=== PATIENT | female | born 1955 | race American Indian/Alaskan Native ===

== ENCOUNTER 2018-07-13 05:00 | Inpatient (IN) ==
--- NOTE | 2018-06-22 13:27 | Anesthesiology Consultation ---
Date of Service June 22, 2018 Assessment & Plan (1) Encounter for pre-operative examination: Chart Review Chart Review: Acceptable Risk for Surgery and Patient seen in Pre Admission Testing Consults Requested medical (Dr. Marks (07/07)) Patient was seen by PCP's office on 07/07/18. Per note, "Cleared for procedure". Teaching & Discussion Pre-Anesthesia Teaching/Discussion Notes: Instructed NPO after midnight before surgery, except medications with 15 cc of water. Medication instructions provided according to the PAT guidelines. History Surgery Operation Date: 07/13/18 07:15 Proposed Procedures p Right Total Knee Arthroplasty, Left Knee Injection - Homer Murguia DO Height/Weight Height: 5 ft 1 in Weight: 67.4 kg Allergies Allergy/AdvReac Type Severity Reaction Status Date / Time No Known Allergies Allergy Verified 06/16/18 08:07 Medications Home Medications Medication Instructions Recorded Confirmed Last Taken acetaminophen [Tylenol Extra 2 tab PO TID PRN 06/16/18 06/16/18 Unknown Strength] atorvastatin 20 mg PO DAILY 06/16/18 06/16/18 06/15/18 calcium carbonate [Calcium 600] 600 mg PO QAM 06/16/18 06/16/18 Unknown glucosamine-chondroitin 1 dose PO DAILY 06/16/18 06/16/18 Unknown hydrochlorothiazide 12.5 mg PO DAILY 06/16/18 06/16/18 06/15/18 multivitamin [Multiple Vitamins] 1 tab PO QAM 06/16/18 06/16/18 Unknown perindopril erbumine 8 mg PO DAILY 06/16/18 06/16/18 06/15/18 Past Medical History Medical History History of scoliosis Hyperlipidemia Hypertension Osteoarthritis Past Surgical History Surgical History History of abdominoplasty History of bilateral breast reduction surgery History of colonoscopy History of foot surgery L "PINS MID FOOT" & R ("STRAIGHTENED HAMMER TOE/2ND TOE") History of lumbar fusion L5-S1 FUSION, REMOVAL HARDWARE AND REPLACEMENT/MAR 2018 History of spinal fusion T2-S1 Nausea and vomiting after administration of anesthetic agent Past Anesthesia History No Hx of Anesthesia Complications and No Family Hx of Anesthesia Complications History of PONV Yes Motion Sickness Screening History of Motion Sickness: No Social History Smoking Status: Former smoker tobacco type: cigarettes Do You Dip or Chew Tobacco: No Smoking End Date: QUIT 20 YR AGO Hx Alcohol Use: Yes Alcohol type: wine alcohol intake frequency: other Alcohol Intake Frequency Comment: 10 DRINKS A WEEK Hx Substance Use: No substance use type: does not use Exercise / Class Metabolic Activity II 4-5 Yardwork/Stairs/Walk up hill (6-7K steps per day. Unable to walk on hills due to knee pain. Able to climb stairs, but slowly due to knee pain. Denies CP or SOB. ) Review of Systems Patient denies chest pain, shortness of breath, dyspnea on exertion, reflux, cough, wheezing, palpitations. + Joint Pain (Knees) Physical Exam Vital Signs BP: 111/77 P: 93 R: 18 T: 98.6 SPO2: 98% on RA ENMT Thyromental Distance: < 3.5 Finger Breadths (3) Mallampati Class: II Mouth / Teeth: 1. Upper partial Plate Upper partial plate Neck normal visual inspection and trachea midline; neck extension not limited Respiratory normal respiratory effort Auscultation: lungs clear to auscultation bilaterally Cardiovascular Rate/Rhythm: regular rate and regular rhythm Heart Sounds: no murmur Vessels: no carotid bruit Neurologic moves all extremities Psychiatric Orientation: alert and oriented x 3 Testing Electrocardiogram Date: 06/22/18 Findings: + NSR @ (83) Nonspecific T wave abnormality Chest X-Ray Date: 06/22/18 Findings: + NAD FINDINGS: PA and lateral chest radiographs are obtained. No prior studies are available for comparison at the time of dictation. The cardiomediastinal silhouette is unremarkable. The lungs and pleural spaces are clear. There is no pneumothorax. The skeletal structures are osteopenic. The bony thorax appears intact. Extensive fusion hardware is present throughout the thoracolumbar spine. IMPRESSION: No active disease in the chest. Laboratory Results 06/22/18 14:03 06/22/18 14:03 Blood Type A Positive 06/22/18 14:03 Antibody Screen NEGATIVE 06/22/18 14:03 PT 10.6 Seconds (9.0-12.0) 06/22/18 14:03 INR 1.0 (0.9-1.1) 06/22/18 14:03 APTT 23.4 Seconds (21.0-31.0) 06/22/18 14:03 Hemoglobin A1c 5.3 % (4.5-5.6) 06/22/18 14:03 Urine Color Yellow 06/22/18 14:03 Urine Appearance Clear (Clear) 06/22/18 14:03 Urine pH 6.5 (4.5-7.5) 06/22/18 14:03 Ur Specific [place] 1.015 (1.000-1.030) 06/22/18 14:03 Urine Protein Negative (Negative) 06/22/18 14:03 Urine Glucose (UA) Negative (Negative) 06/22/18 14:03 Urine Ketones Negative (Negative) 06/22/18 14:03 Urine Nitrite Negative (Negative) 06/22/18 14:03 Ur Leukocyte Esterase Negative (Negative) 06/22/18 14:03 Urine WBC (Auto) 0 /hpf (0-5) 06/22/18 14:03 Urine RBC (Auto) 0-4 /hpf (0-4) 06/22/18 14:03 U Hyaline Cast (Auto) 0 /lpf (0-5) 06/22/18 14:03 U Epithel Cells (Auto) 0-5 /lpf (0-5) 06/22/18 14:03 Urine Bacteria (Auto) Negative (Negative) 06/22/18 14:03 06/22/18 14:03 Urine Culture - Final Urine,Clean Catch More than three types of organisms present, all low counts mixed probable skin miracle. No further identifications or sensitivities to follow.
--- NOTE | 2018-06-22 13:35 | PAT Medication Instructions ---
Medication Instructions Date of Service June 22, 2018 Home Medications acetaminophen (Tylenol Extra Strength) 2 tab PO TID NEEDED atorvastatin 20 mg PO DAILY calcium carbonate [Calcium 600] 600 mg PO QAM glucosamine-chondroitin 1 dose PO DAILY hydrochlorothiazide 12.5 mg PO DAILY multivitamin [Multiple Vitamins] 1 tab PO QAM perindopril erbumine (Aceon) 8 mg PO DAILY STOP taking 2 weeks before surgery glucosamine-chondroitin 1 dose PO DAILY DO NOT take the morning of surgery atorvastatin 20 mg PO DAILY calcium carbonate [Calcium 600] 600 mg PO QAM hydrochlorothiazide 12.5 mg PO DAILY multivitamin [Multiple Vitamins] 1 tab PO QAM perindopril erbumine (Aceon) 8 mg PO DAILY Take morning of surgery With a small sip of water, OTHERWISE NOTHING TO EAT OR DRINK AFTER MIDNIGHT: acetaminophen (Tylenol Extra Strength) 2 tab PO TID NEEDED Take evening before surgery acetaminophen (Tylenol Extra Strength) 2 tab PO TID NEEDED atorvastatin 20 mg PO DAILY perindopril erbumine (Aceon) 8 mg PO DAILY Other Notes If you have any questions please call us at [phone] or [phone] or [phone] or [phone]
--- NOTE | 2018-06-22 14:40 | XRay Report ---
TWO VIEW CHEST CLINICAL HISTORY: Preoperative examination. FINDINGS: PA and lateral chest radiographs are obtained. No prior studies are available for compariso n at the time of dictation. The cardiomediastinal silhouette is unremarkable. The lungs and pleural spaces are clear. There is no pneumothorax. The skeletal structures are osteopenic. The bony thorax appears intact. Extensive fusion hardware is present throughout the thoracolumbar spine. IMPRESSION: No active disease in the chest. Electronically signed by: Michael Alexander M.D. 06/22/2018 2:39 PM
[2018-06-22 15:34] LABS: Basophils # (auto) 0.02 K/uL (0-0.2); Basophils % (auto) 0.4 %; Eosinophils % (auto) 2.2 %; Hematocrit (blood only) 37.8 % (37-47); Hemoglobin 12.5 g/dL (12.0-16.0); Lymphocytes % (auto) 45.9 %; Mean Corpuscular Hgb Conc 33.1 g/dL (32-36); Mean Corpuscular Volume 87.7 fL (80-100); Mean Platelet Volume 9.1 fL (7.4-10.4); Monocytes # (auto) 0.42 K/uL (0.11-0.59); Monocytes % (auto) 9.2 %; Neutrophils # (auto) 1.94 K/uL (1.4-6.5); Neutrophils % (auto) 42.3 %; Platelet Count 318 K/uL (130-400); RDW Coefficient of Variation 15.5 % (11.5-14.5); RDW Standard Deviation 50.3 fL (36.4-46.3); Red Blood Count 4.31 M/uL (4.2-5.4); White Blood Count 4.58 K/uL (4.8-10.8)
[2018-06-22 15:44] LABS: Appearance Urine Clear (Clear); Bacteria Urine Automated Negative (Negative); Bilirubin Urine Negative (Negative); Blood Urine Trace (Negative); Cast Urine Automated 0 /lpf (0-5); Color Urine Yellow; Epithelial Cell Urine Auto 0-5 /lpf (0-5); Glucose Urine UA Negative (Negative); Ketones Urine Negative (Negative); Leukocyte Esterase Urine Negative (Negative); Nitrite Urine Negative (Negative); Protein Urine Negative (Negative); RBC Urine Automated 0-4 /hpf (0-4); Specific Gravity Urine 1.015 (1.000-1.030); Urobilinogen Urine Negative (Negative); WBC Urine Automated 0 /hpf (0-5); pH Urine 6.5 (4.5-7.5)
[2018-06-22 15:45] LABS: Albumin Level 4.1 gm/dl (3.4-5.0); BUN Creatinine Ratio 22.2 (10-20); Calcium 9.3 mg/dl (8.5-10.1); Creatinine Clr Calc Pharmacy 89.6 ml/min; Est GFR (African American) 114.1; Est GFR (Non-African American) 98.4; Potassium 3.7 mmol/L (3.5-5.1)
[2018-06-22 15:49] LABS: Partial Thromboplastin Ratio 0.9; Partial Thromboplastin Time 23.4 Seconds (21.0-31.0); Prothrombin Time 10.6 Seconds (9.0-12.0)
[2018-06-23 06:45] LABS: Estimated Average Glucose 105 mg/dl; Hemoglobin A1C 5.3 % (4.5-5.6)
--- NOTE | 2018-07-12 20:23 | History & Physical Report ---
Date of Service July 12, 2018 Assessment & Plan (1) Tricompartment degenerative joint disease of knee: I have indicated the patient for right total knee replacement, IA corticosteroid left knee. The risks, benefits and complications of surgery were explained to the patient which include but not limited to infection, acute blood loss, DVT/PE, injury to nerves, vessels, bone, soft tissue, arthrofibrosis, chronic pain, failure of the prosthesis, knee dislocation, leg length discrepancy, need for additional surgery, cardiac and pulmonary events and . The patient wished to proceed with surgery and informed consent was obtained at this time. We will plan for ASA BID post-operatively for DVT prophylaxis. Upon discharge the patient will be discharged home with home health services. Appropriate clearances by PCP were obtained. We will also perform IA corticosteroid injection for the patients left knee. History of Present Illness Chief Complaint: Right knee pain/djd Left knee pain/djd Primary Care Provider: Oneal Marks The patient is a 63 year old female who presents with complaints of severe right knee pain and DJD. The patient has failed outpatient conservative treatments to this point which included NSAIDs, IA corticosteroid and CLARK injections, PT and HEP/walking program. The patient's pain and limited function have progressed to the point where they severely hinder their activities of daily living and they no longer tolerate exercise programs. They are requesting to proceed with total knee replacement surgery. Allergies Allergy/AdvReac Type Severity Reaction Status Date / Time No Known Allergies Allergy Verified 07/13/18 05:47 Home Medications Home Medications Medication Instructions Recorded Confirmed Type acetaminophen [Tylenol Extra 2 tab PO TID PRN 06/16/18 07/13/18 History Strength] atorvastatin 20 mg PO DAILY 06/16/18 06/16/18 History calcium carbonate [Calcium 600] 600 mg PO QAM 06/16/18 07/13/18 History glucosamine-chondroitin 1 dose PO DAILY 06/16/18 07/13/18 History hydrochlorothiazide 12.5 mg PO DAILY 06/16/18 06/16/18 History multivitamin [Multiple Vitamins] 1 tab PO QAM 06/16/18 07/13/18 History perindopril erbumine 8 mg PO DAILY 06/16/18 06/16/18 History Past Med/Surg History Medical History History of scoliosis Hyperlipidemia Hypertension Osteoarthritis Surgical History History of abdominoplasty History of bilateral breast reduction surgery History of colonoscopy History of foot surgery L "PINS MID FOOT" & R ("STRAIGHTENED HAMMER TOE/2ND TOE") History of lumbar fusion L5-S1 FUSION, REMOVAL HARDWARE AND REPLACEMENT/MAR 2018 History of spinal fusion T2-S1 Nausea and vomiting after administration of anesthetic agent Social History Preferred Language: Amharic Communication Ability: Effective Security Architect Required: No Beliefs That Will Affect Care: None Current Living Situation: Spouse Other Information That Helps Us Care for You: No Feels Safe at Home: Yes Smoking Status: Former smoker Tobacco Type: cigarettes Do You Dip or Chew Tobacco: No Smoking End Date: QUIT 20 YR AGO Hx Alcohol Use: Yes Alcohol type: wine Hx Substance Use: No Review of Systems Review of Systems: All systems reviewed & are unremarkable except as noted in HPI & below Constitutional: as per Subjective / HPI Physical Exam Physical Exam: RLE NVSI +EHL/FHL/TA/GS SILT grossly, +2 DP pulse, compartments soft NT, limited painful ROM 0-125 with crepitus. LLE NVSI +EHL/FHL/TA/GS SILT grossly, +2 DP pulse, compartments soft NT, limited painful ROM 0-125 with creptius. Constitutional: WD/WN, vitals as above Eyes: PERRL, conjunctivae normal, anicteric sclerae ENMT: external ear and nose normal, oropharynx normal Neck: trachea midline, no thyromegaly Respiratory: normal respiratory effort, lungs clear to auscultation Cardiovascular: RRR, no murmur, no edema Gastrointestinal (Abdomen): normal bowel sounds, soft, nontender, no hepatosplenomegaly Musculoskeletal: no cyanosis or clubbing, extremities motor strength 5/5 Skin: no rashes, warm and dry Neurologic: patellar DTR's 2+ bilat, sensation intact Psychiatric: A+Ox3, euthymic affect Lymphatic: no cervical or axillary lymphadenopathy Results & Data Diagnostic Findings Multiple views of bilateral knees demonstrate severe tricompartmental DJD with complete loss of the patellofemoral joint space. +osteophytes, +sclerosis, +subchondral cysts.
[2018-07-13] MEDS ORDERED: TRANEXAMIC ACID 1,000 MG **IV Pre-op IV SCH (06:00)
[2018-07-13] MEDS ORDERED: CEFAZOLIN 1000MG 1,000 MG/7.5 ML SYR IV SCH ×2 (06:00→11:04)
[2018-07-13] MEDS ORDERED: LR 500ML BOLUS, THEN 15ML/HR IV SCH (06:00)
[2018-07-13] MEDS ORDERED: FAMOTIDINE 20 MG TAB PO SCH (06:00)
[2018-07-13] MEDS ORDERED: METOCLOPRAMIDE HCL 10 MG TABLET PO SCH (06:00)
[2018-07-13] MEDS ORDERED: ACETAMINOPHEN 500 MG TAB PO SCH (06:00)
[2018-07-13] MEDS ORDERED: SCOPOLAMINE 1.5 MG TDSY TD SCH (06:00)
[2018-07-13] MEDS ORDERED: dexAMETHasone 4 MG TAB PO SCH (06:00)
[2018-07-13] MEDS ORDERED: ROPIVACAINE 0.5% HCL/PF 150 MG, BUPIVACAINE 0.5% MPF 30 ML, EPINEPHrine 30MG/30ML (OR U... INFIL SCH (06:00)
[2018-07-13] MEDS ORDERED: CeleBREX 200 MG CAP PO SCH (06:00)
[2018-07-13] MEDS ORDERED: TRANEXAMIC ACID 1,000 MG **IV Intra-op IV SCH (06:30)
[2018-07-13] MEDS ORDERED: ROPIVACAINE 0.5% 5 MG/ML 30 ML VIAL ONE (06:33)
[2018-07-13] MEDS ORDERED: BUPIVACAINE 0.5 % 5 MG/1 ML PF 10ML VIAL ONE (06:33)
[2018-07-13] MEDS ORDERED: MIDAZOLAM HCL 1 MG/ML 2ML VIAL ONE (06:34)
[2018-07-13] MEDS ORDERED: KETAMINE HCL INJ 50 MG/ML 10 ML VIAL ONE (06:34)
[2018-07-13] MEDS ORDERED: POVIDONE-IODINE OP SOLN 30 ML BTL ONE (06:58)
[2018-07-13] MEDS ORDERED: BACITRACIN INJ 50,000 UNIT VIAL ONE (06:58)
--- NOTE | 2018-07-13 07:01 | History & Physical Bridge Note ---
Date of Service July 13, 2018 History & Physical Bridge Note I have examined the patient, reviewed the History & Physical and in the interval since the performance of the History & Physical I have noted the following changes of clinical significance: no changes noted
[2018-07-13] MEDS ORDERED: methylPREDNISolone acetate 80 MG/ML VIAL ONE (07:31)
[2018-07-13] MEDS ORDERED: BUPIVACAINE/EPINEPHRINE 0.5% MPF 1:200,000 30 ML VIAL ONE (07:33)
[2018-07-13] MEDS ORDERED: PHENYLEPHRINE 100MCG/ML 5ML SYR IV PRN (07:44)
[2018-07-13] MEDS ORDERED: ONDANSETRON INJ 2 MG/ML 2 ML VIAL IV PRN ×2 (07:44→11:04)
[2018-07-13] MEDS ORDERED: ATROPINE SULFATE 0.1 MG/ML 10ML SYR IV PRN (07:44)
[2018-07-13] MEDS ORDERED: HYDROmorphone INJ 1 MG/ML SYRINGE IV PRN (07:44)
[2018-07-13] MEDS ORDERED: ePHEDrine sulfate 50 MG/ML AMP IV PRN (07:44)
[2018-07-13] MEDS ORDERED: LIDOCAINE HCL 2% 2 ML VIAL/AMP(20MG/ML) INFIL ONE (07:55)
[2018-07-13] MEDS ORDERED: ONDANSETRON INJ 2 MG/ML 2 ML VIAL ONE (07:55)
[2018-07-13] MEDS ORDERED: PROPOFOL IV EMULSION 10 MG/ML 20 ML VIAL IV ONE (07:55)
[2018-07-13] MEDS ORDERED: GLYCOPYRROLATE 0.2 MG/ML VIAL ONE (07:55)
[2018-07-13] MEDS ORDERED: DEXAMETHASONE SOD INJ 4 MG/ML VIAL ONE (07:55)
--- NOTE | 2018-07-13 09:12 | Post Operative Brief Note ---
Immediate Post Op Note v1 Date of Surgery July 13, 2018 Pre & Post Diagnosis Operation Date: 07/13/18 07:15 Pre-Op Diagnosis: Right Knee Osteoarthritis, left knee osteoarthritis Post-Op Diagnosis: Right Knee Osteoarthritis, left knee osteoarthritis Procedure Operation Date: 07/13/18 07:15 Actual Procedures p Right Total Knee Arthroplasty(Right) - Homer Murguia DO s Left Knee Injection(Left) - Homer Murguia DO Surgeon Homer Murguia DO Estimator And Drafter Augustus White Estimated Blood Loss 50 Findings Consistent with Post-Op Diagnosis Fluids 1700 cc LR Specimens distal femur, proximal tibia bone fragments Anesthesia Type Spinal MAC Complications none Disposition Disposition: Recovery Room Overlapping Procedure I was present for: the critical portions of procedure. I was immediately available: during the entire case. Back up surgeon: was not required during procedure.
--- NOTE | 2018-07-13 09:33 | Operative Report ---
Post Operative Report Pre & Post Diagnosis Operation Date: 07/13/18 07:15 Pre-Op Diagnosis: Right Knee Osteoarthritis, left knee osteoarthritis Post-Op Diagnosis: Right Knee Osteoarthritis, left knee osteoarthritis Procedure Operation Date: 07/13/18 07:15 Actual Procedures p Right Total Knee Arthroplasty(Right) - Homer Murguia DO s Left Knee Injection(Left) - Homer Murguia DO Surgeon Homer Murguia DO Airline Attendant Augustus White Estimated Blood Loss 50 Findings Consistent with Post-Op Diagnosis Specimens proximal tibia, distal femur fragments Anesthesia Type Spinal MAC Complications none Disposition Disposition: Recovery Room Indications The patient is a 63-year-old femur presents with long history of severe bilateral knee tricompartmental DJD and failed outpatient conservative treatments including NSAIDs, bracing, injections and home walking/exercise program. The patient's symptoms have progressed to the point where it has been difficult to perform normal activities of daily living. I have indicated the patient for a right total knee arthroplasty and intra- articular corticosteroid injection of the left knee, the risks and benefits and complications of the procedure include but are not limited to infection bleeding damage to bone, nerves, vessels, surrounding soft tissue, blood clots, loss of function, leg length discrepancy, dislocation, failure of the components, need for additional surgery and . The patient wished to proceed with surgery at this time and informed consent was obtained. Appropriate clearances were obtained. Description of Procedure Following induction of spinal anesthesia, the patient was positioned on the operating room table. A timeout was performed, patient identified site were confirmed, utilizing sterile technique the superior lateral aspect of the left knee was cleaned with Betadine solution and alcohol. Intra-articular corticosteroid injection was administered containing 3 cc of 1% lidocaine and 2 cc of betamethasone. Adhesive bandage was applied. The patient tolerated the procedure well. Next, a tourniquet was applied to the proximal aspect of the thigh and the patient's right leg was prepped and draped in the usual sterile manner. A timeout was performed, patient identified and site yesenia confirmed. Appropriate pre-operative IV antibiotics were given. The limb was exsanguinated with an Esmarch bandage and tourniquet was inflated to 300 mmHg. A longitudinal midline incision was made over the anterior knee. Subcutaneous tissue was sharply dissected down to fascia. Electrocautery was used for hemostasis. Next a parapatellar arthrotomy was performed. Patella was everted and the knee was flexed. A Dent retractor was used to expose the synovium above on the anterior aspect of the femur and removed down to bone. Next, the anterior fat pad was removed to aid in visualization. The medial face of the tibia was cleared of soft tissue first with a Bovie and a coffey elevator. This tissue was retracted posteriorly using a blunt Hohmann. Next, the extra-medullary tibial cutting guide was placed to the anterior aspect of the tibia. The tibia resection level was set taking 2mm from the defective tibial condyle. Resection depth was once again confirmed with carla wing. The medial and lateral collateral ligament was protected with two Hohmann retractors. The tibia guide was removed and proximal tibial bone fragment removed utilizing straight osteotome, electrocautery and Harman. Next, the distal femur intramedullary canal was accessed utilizing the step drill. The intramedullary distal femur cutting guide was placed into the canal and pinned into place. The distal femur was cut on the +2 setting. Next the cutting guide was removed and the femur was sized. Care was taken to ensure appropriate net developer architect all rotation and 5 degree holes were drilled. A size 8 4-in-1 cutting block was placed on the distal end of the femur and secured into place with two short headed screws. Two bent Hohmann retractors were placed to protect the medial and lateral collateral ligaments. The oscillating saw was used to cut anterior, posterior, anterior chamfer and posterior chamfer. The four and one cutting block was removed and bone fragments excised. Laminar energy systems laboratory director was placed laterally and the ACL and PCL were removed followed by the medial meniscus and posterior medial osteophytes. Aquamantys was utilized for any posterior medial bleeders and Orthomix injected into the posterior medial capsule. A laminar energy systems laboratory director was then placed in the medial compartment and the lateral meniscus and posterior osteophytes were removed. Aquamantys was utilized for any posterior lateral bleeders and Orthomix injected into the posterior lateral capsule. Next, drop christophe and spacer block were placed with the leg in flexion and extension to assess alignment and flexion/extension gaps. Next, the proximal tibia was assessed and two bent Hohmans were placed medial and lateral to aid in visualization. The appropriate tibia size and rotation was selected and a size D tibial plate was pinned into place with appropriate rotation. Preparation of the tibia was completed utilizing the matching tibial drill and broach. I then turned my attention back to the distal femur in a trial femoral component was impacted into place. Appropriate femoral width was assessed and selected. Next the femur PS box cut guide was placed and cut made with the reciprocal saw and the PS box provisional placed. A trial size 10 tibia articular tray was placed and varus-valgus balance assessed in 0 degrees of extension and 30, 60 and 90 degrees of flexion. A final tibial articular surface size 10 was chosen. Assess was gained to the patella and caliper utilized to measure width. The patella reamer was utilized and remaining bone removed with oscillating saw. A size 29 patella button was selected and the patella pegs drilled. Trial patella button was placed and tracking was assessed. The knee was found to be well balanced, well aligned with excellent patella tracking. The trials were removed and final components were obtained and assembled. The knee was irrigated copiously with sterile saline solution mixed with bacitracin. Access to the proximal tibia was once again obtained utilizing to the Hohmans and the proximal tibia and distal femur were dried with lap sponges. The final components were cemented into place and all excess cement was removed. A trial tibial articular surface was placed while cemented hardened. Knee stability was once again assessed and the final component inserted. The knee was injected with the remaining Orthomix which includes a combination of Ropivicaine 0.5% 150mg, Bupivicaine 0.5%/Epinephrine 1:200,000 30ml, Toradol 30mg, Dexamethasone 4mg, Ketamine 10mg, Clonidine 100mcg and NSS 30ml solution and irrigated once more with sterile saline solution mixed with bacitracin. The capsulotomy was closed with #1 Vicryl followed by subcutaneous closure with 2-0 Vicryl. Skin closure was performed with zelda and a sterile dressing, Silverlon, 4 x 4s and nai wrap was applied. Tourniquet was deflated at 89 minutes. The patient tolerated the procedure well and was taken to the PACU in stable condition. Due to the complex nature of the procedure, the entire surgery was performed with the operational assistance of Augustus White PA-C. The assistant quality manager, under direct supervision, was involved in the actual performance of all aspects of the surgical procedure including patient positioning, hemostasis, tissue retraction, instrument management and wound closure. I attest to the content of the Intraoperative Record and any orders documented therein. Any exceptions are noted below.
--- NOTE | 2018-07-13 10:08 | XRay Report ---
XR knee RT 2V routine CLINICAL HISTORY: Surgical Post Op COMPARISON: None FINDINGS: Alignment of the right knee arthroplasty is anatomic. There is no fracture or unexpected r adiopaque foreign body. There are skin zelda. IMPRESSION: Expected findings following total right knee arthroplasty. Electronically signed by: Navin Giordano M.D. 07/13/2018 10:07 AM
--- NOTE | 2018-07-13 10:26 | Anesthesiology Progress Note ---
Date of Service July 13, 2018 Anesthesia Post Procedure Vital Signs Vital Signs: Temp Pulse Pulse Resp BP BP Pulse Ox 07/13/18 10:20 58 L 12 114/65 100 07/13/18 10:10 70 16 113/65 100 07/13/18 10:00 66 14 115/69 99 07/13/18 09:50 65 15 104/66 100 07/13/18 09:41 36.9 C 83 12 112/69 100 07/13/18 05:54 36.6 C 70 20 137/81 97 Pain Intensity Bilateral Knee: Pain Intensity: 3 Transfer of Care Handoff Completed per policy Notes Mental Status: alert / awake / arousable Patient Amnestic to Procedure: Yes Nausea / Vomiting: adequately controlled Pain: adequately controlled Airway Patency, RR, SpO2: stable & adequate BP & HR: stable & adequate Hydration State: stable & adequate Neuraxial Anesthesia: was administered and sensory block is resolving Anesthetic Complications: no major complications apparent
[2018-07-13] MEDS ORDERED: MAGNESIUM HYDROXIDE SUSP 30 ML UDC PO PRN (11:04)
[2018-07-13] MEDS ORDERED: NALOXONE HCL 0.4 MG/1 ML VIAL/CARP IV PRN (11:04)
[2018-07-13] MEDS ORDERED: BISACODYL 10 MG SUPP PR PRN (11:04)
[2018-07-13] MEDS ORDERED: HYDROmorphone INJ 0.5 MG/0.5 ML SYR IV PRN (11:04)
[2018-07-13] MEDS ORDERED: METOCLOPRAMIDE HCL INJ 5 MG/ML 2 ML VIAL IV PRN (11:04)
[2018-07-13] MEDS: KETOROLAC TROMETHAMINE 15 MG/ML VIAL IV SCH ×2 (11:57→19:12)
[2018-07-13] MEDS: SODIUM CHLORIDE 0.9% 1000ML 1,000 ML IV SCH ×2 (11:57→21:02)
[2018-07-13] MEDS: ACETAMINOPHEN 500 MG TAB PO SCH ×2 (13:30→21:05)
[2018-07-13] MEDS: CEFAZOLIN 1000MG 1,000 MG/7.5 ML SYR IV SCH (15:46)
[2018-07-13] MEDS: CHECK SCOPOLAMINE PATCH PLACEMENT SCH (15:47)
--- NOTE | 2018-07-13 19:30 | Orthopedic Progress Note ---
Date of Service July 13, 2018 Assessment & Plan (1) Tricompartment degenerative joint disease of knee: Status post intra-articular corticosteroid injection left knee, right total knee arthroplasty -Ancef x24 -DVT prophylaxis SCDs, teds, ASA twice daily -Weight-bear as tolerates bilateral lower extremities -PT/OT -A.m. labs -Postoperative x-rays demonstrate a well aligned well fixed orthopedic prosthesis without evidence of fracture dislocation. -DC planning home with home health Subjective Post Operative Progress Note Patient seen sitting up in bed, comfortable, denies complaints, pain well controlled, no acute issues. Review of Systems Review of Systems: All systems reviewed & are unremarkable except as noted in HPI & below Constitutional: as per Subjective / HPI Physical Exam Physical Exam: Right lower extremity physical exam limited secondary to spinal anesthesia, patient still feeling the effects but slowly improving. +2 dorsalis pedis pulse, slight movement of toes and ankle, compartment soft nontender, dressing clean dry and intact LLE NVSI +EHL/FHL/TA/GS SILT grossly, +2 DP pulse, compartments soft NT, dressing cdi. Constitutional: WD/WN, vitals as above Results & Data Vital Signs (Past 12 Hours) Vital Signs Temp Pulse Pulse Resp BP Pulse Ox 07/13/18 15:14 36.7 C 82 16 116/69 95 07/13/18 13:51 94 H 16 124/73 99 07/13/18 13:03 89 16 113/72 98 07/13/18 11:50 64 16 105/64 100 07/13/18 11:20 66 107/70 100 07/13/18 10:50 36.6 C 73 16 117/76 99 07/13/18 10:30 36.7 C 62 14 121/78 100 07/13/18 10:20 58 L 12 114/65 100 07/13/18 10:10 70 16 113/65 100 07/13/18 10:00 66 14 115/69 99 07/13/18 09:50 65 15 104/66 100 07/13/18 09:41 36.9 C 83 12 112/69 100
[2018-07-13] MEDS ORDERED: SENNA 8.6 MG TAB PO SCH (21:00)
[2018-07-13] MEDS: DOCUSATE SODIUM 100 MG CAP PO SCH (21:04)
[2018-07-13] MEDS: OXYCODONE HCL IR 5 MG TAB (IMMEDIATE RELEASE) PO PRN (21:08)
[2018-07-14] MEDS: CEFAZOLIN 1000MG 1,000 MG/7.5 ML SYR IV SCH (00:02)
[2018-07-14] MEDS: CHECK SCOPOLAMINE PATCH PLACEMENT SCH (00:02)
[2018-07-14] MEDS: KETOROLAC TROMETHAMINE 15 MG/ML VIAL IV SCH ×2 (00:02→05:41)
[2018-07-14] MEDS: OXYCODONE HCL IR 5 MG TAB (IMMEDIATE RELEASE) PO PRN ×3 (02:57→12:33)
[2018-07-14] MEDS: ACETAMINOPHEN 500 MG TAB PO SCH (05:41)
[2018-07-14 06:07] LABS: Hematocrit (blood only) 29.6 % (37-47); Hemoglobin 10.1 g/dL (12.0-16.0); Mean Corpuscular Hgb Conc 34.1 g/dL (32-36); Mean Corpuscular Volume 84.3 fL (80-100); Mean Platelet Volume 8.9 fL (7.4-10.4); Platelet Count 254 K/uL (130-400); RDW Coefficient of Variation 16.2 % (11.5-14.5); RDW Standard Deviation 49.9 fL (36.4-46.3); Red Blood Count 3.51 M/uL (4.2-5.4); White Blood Count 11.13 K/uL (4.8-10.8)
[2018-07-14 06:39] LABS: BUN Creatinine Ratio 23.6 (10-20); Calcium 8.3 mg/dl (8.5-10.1); Creatinine Clr Calc Pharmacy 78.6 ml/min; Est GFR (African American) 109.1; Est GFR (Non-African American) 94.1; Potassium 3.9 mmol/L (3.5-5.1)
[2018-07-14] MEDS: DOCUSATE SODIUM 100 MG CAP PO SCH (08:21)
[2018-07-14] MEDS ORDERED: CeleBREX 200 MG CAP PO SCH (09:00)
[2018-07-14] MEDS ORDERED: ASPIRIN 325 MG ECTAB PO SCH (09:00)
[2018-07-14] MEDS ORDERED: hydroCHLOROthiazide 25 MG TAB PO SCH (09:00)
[2018-07-14] MEDS ORDERED: LISINOPRIL 20 MG TAB PO SCH (09:00)
[2018-07-14] MEDS ORDERED: ATORVASTATIN 20 MG TAB PO SCH (09:00)
[2018-07-14] MEDS ORDERED: MULTIVITAMIN TAB PO SCH (09:00)
--- NOTE | 2018-07-14 10:11 | Orthopedic Progress Note ---
Date of Service July 14, 2018 Assessment & Plan (1) Tricompartment degenerative joint disease of knee: Status post intra-articular corticosteroid injection left knee, right total knee arthroplasty POD#1 -Ancef x24 -DVT prophylaxis SCDs, teds, ASA twice daily -Weight-bear as tolerates bilateral lower extremities -PT/OT -A.m. labs - hgb 10.1 -Postoperative x-rays demonstrate a well aligned well fixed orthopedic prosthesis without evidence of fracture dislocation. -DC planning home with home health today Subjective Post Operative Progress Note Patient seen sitting up in bed, comfortable, denies complaints, pain well controlled, no acute issues. Review of Systems Review of Systems: All systems reviewed & are unremarkable except as noted in HPI & below Constitutional: as per Subjective / HPI Physical Exam Physical Exam: RLE NVSI +EHL/FHL/TA/GS SILT grossly, +2 DP pulse, compartments soft NT, dressing cdi. LLE NVSI +EHL/FHL/TA/GS SILT grossly, +2 DP pulse, compartments soft NT. Constitutional: WD/WN, vitals as above Results & Data Vital Signs (Past 12 Hours) Vital Signs Temp Pulse Pulse Resp BP BP Pulse Ox 07/14/18 07:50 36.7 C 64 16 118/70 96 07/14/18 07:15 36.7 C 93 H 18 126/77 93 07/14/18 02:38 36.7 C 88 16 116/71 91 07/13/18 22:48 36.7 C 101 H 18 119/69 94
--- NOTE | 2018-07-14 10:15 | Anesthesiology Progress Note ---
Date of Service July 14, 2018 Anesthesia Post Procedure Vital Signs Vital Signs: Temp Pulse Pulse Resp BP BP Pulse Ox 07/14/18 07:50 36.7 C 64 16 118/70 96 07/14/18 07:15 36.7 C 93 H 18 126/77 93 07/14/18 02:38 36.7 C 88 16 116/71 91 07/13/18 22:48 36.7 C 101 H 18 119/69 94 07/13/18 19:36 37.0 C 90 18 113/67 93 07/13/18 15:14 36.7 C 82 16 116/69 95 07/13/18 13:51 94 H 16 124/73 99 07/13/18 13:03 89 16 113/72 98 07/13/18 11:50 64 16 105/64 100 07/13/18 11:20 66 107/70 100 07/13/18 10:50 36.6 C 73 16 117/76 99 07/13/18 10:30 36.7 C 62 14 121/78 100 07/13/18 10:20 58 L 12 114/65 100 Pain Intensity Bilateral Knee: Pain Intensity: 3 Right Knee: Pain Intensity: 0 Notes Mental Status: alert / awake / arousable and participated in evaluation Patient Amnestic to Procedure: Yes Nausea / Vomiting: adequately controlled Pain: adequately controlled Airway Patency, RR, SpO2: stable & adequate BP & HR: stable & adequate Hydration State: stable & adequate Neuraxial Anesthesia: was administered and sensory block resolved Anesthetic Complications: no major complications apparent
[2018-07-14 11:29] VITALS: BP 122/82; PULSE 70; TEMP 97.7; O2SAT 95
--- NOTE | 2018-07-15 15:49 | Discharge Summary ---
Date of Service July 15, 2018 Admission HPI Per Admitting Provider The patient is a 63 year old female who presents with complaints of severe right knee pain and DJD. The patient has failed outpatient conservative treatments to this point which included NSAIDs, IA corticosteroid and CLARK injections, PT and HEP/walking program. The patient's pain and limited function have progressed to the point where they severely hinder their activities of daily living and they no longer tolerate exercise programs. They are requesting to proceed with total knee replacement surgery. Principal Diagnosis Bilateral knee DJD s/p Right total knee replacement, left knee intra-articular corticosteroid injection Discharge Exam Constitutional WD/WN, vitals as above Eyes PERRL, conjunctivae normal, anicteric sclerae ENMT external ear and nose normal, oropharynx normal Neck trachea midline, no thyromegaly Respiratory normal respiratory effort, lungs clear to auscultation Cardiovascular RRR, no murmur, no edema Gastrointestinal (Abdomen) normal bowel sounds, soft, nontender, no hepatosplenomegaly Musculoskeletal no cyanosis or clubbing, extremities motor strength 5/5 Skin no rashes, warm and dry Neurologic patellar DTR's 2+ bilat, sensation intact Psychiatric A+Ox3, euthymic affect Lymphatic no cervical or axillary lymphadenopathy Discharge Data Allergies Allergy/AdvReac Type Severity Reaction Status Date / Time No Known Allergies Allergy Verified 07/13/18 05:47 Consultations 07/13/18 11:04 Consult Case Management - Discharge Planning Routine Procedures Performed Operation Date: 07/13/18 07:15 Actual Procedures p Right Total Knee Arthroplasty(Right) - Homer Murguia DO s Left Knee Injection(Left) - Homer Murguia DO Ordered Studies 07/13/18 05:00 US - OR guided needle placemen Routine Hospital Course (1) Tricompartment degenerative joint disease of knee: The patient is a 63 -year-old female who presents with long standing history of severe bilateral knee DJD and failed outpatient conservative treatments including NSAIDs, bracing, injections and home walking/exercise program. The patient's symptoms have progressed to the point where it has been difficult to perform even normal activities of daily living. I indicated the patient for a intra-articular left knee corticosteroid injection and right total knee arthroplasty, the risks, benefits and complications of the procedure include but not limited to infection, bleeding, damage to bone, nerves, vessels, surrounding soft tissue, may develop blood clots, loss of function, leg length discrepancy, dislocation, failure of the components, loosening of the components, the need for additional surgery and . The patient wished to proceed with surgery at this time and informed consent was obtained. Hospital Course: On 07/03/18 the patient was taken to the operating room, adequate anesthesia administered and underwent a intra-articular left knee corticosteroid injection and right total knee arthroplasty. The patient tolerated the procedures well and was taken to the PACU in stable condition. Post-operatively the patient was started on a DVT ppx medication and given appropriate IV antibiotics. Consults were placed to physical therapy, occupational therapy and case management. On POD#1, the patient did well overnight and their pain was well controlled. Labs were drawn and the Hgb was 10.1. The patient progressed well with PT. Dressings were changed at this time and the incision was clean, dry and intact. The patients hospital stay was relatively uneventful and they were deemed stable by the orthopedic team and consultants to be discharged home with on 07/14/18. Discharge Instructions: Upon discharge the patient may weight bear as tolerates through their operative extremity. They were instructed to keep the incision clean and dry at all times. The patient may shower but should not submerge the incision, avoid bathi ng, pools and hot tubes. The patient was given a script for pain medication and should take as instructed. The patient was given a script for DVT ppx 325mg ASA BID and should take as directed. The patient was instructed to not drive or travel for long distances until cleared to do so. If the patient develops any symptoms of fevers, chills, nausea, vomiting, increased redness, swelling, pain or drainage from the surgical site, they should notify the office and/or proceed to the nearest emergency room. The patient should follow up in 10-14 days after surgery for their routine post-operative follow-up appointment and should call the office to confirm the date and time. Status post intra-articular corticosteroid injection left knee, right total knee arthroplasty POD#1 -Ancef x24 -DVT prophylaxis SCDs, teds, ASA twice daily -Weight-bear as tolerates bilateral lower extremities -PT/OT -A.m. labs - hgb 10.1 -Postoperative x-rays demonstrate a well aligned well fixed orthopedic pros thesis without evidence of fracture dislocation. -DC planning home with home health today Total Time Total Time Spent Total Time Spent (In Minutes): >60 minutes Total Time Includes: Examination of the Patient, Discharge Planning, Medication Reconciliation and Communication With Other Providers Discharge Plan Discharge Items Patient Disposition: Home - Home Health Services Reason For Visit: RIGHT KNEE OSTEOARTHRITIS,LEFT KNEE OSTEOARTHRITIS Discharge Diagnosis: Right total knee replacement, left knee intra-articular corticosteroid injection Condition: Good Discharge Goals: Decrease discomfort, Improve function, Increase independence and Therapeutic intervention Activity: Per 'Additional Instructions' section Lifting: Wait until after follow-up appointment Bathing Comment: No bathing, pools or hot tubs Sexual Activity: Wait until after follow-up appointment Exercise/Sports: Wait until after follow-up appointment Driving/Machine Use Comment: No driving till cleared by your surgeon Weightbearing: Left weightbearing and Right weightbearing Non-emergency contact: Primary Care Provider and Surgeon Call non-emergency contact if: you have any medication questions, your symptoms worsen, your pain is not controlled, your pain is worsening, your pain is unusual for you, your pain is concerning for you, you have a fever, your temperature is above 101, your wound has increased redness, your wound has increased drainage and your wound pain has increased Follow-up/Referrals: Oneal Marks, [Primary Care Provider] - Diet: Regular Addtl Provider Instructions: ACTIVITY RECOMMENDATIONS: SELF CARE INSTRUCTIONS AFTER TOTAL KNEE REPLACEMENT A. You may need to continue a physical therapy program after discharge from the hospital. There are several options available to you. Your doctor will assist you in selecting the best one for you. 1. An out-patient facility 2 to 3 times a week for therapy or home therapy. 2. Continue working on all exercises taught to you in the hospital. Your goals should be to increase bending of your knee to 90 degrees and beyond and to fully straighten your knee. B. You may progress at your own pace from walking with a walker or crutches to a cane; then to no assistive devices. C. Make walking a part of your daily routine. Be up as much as comfortable with rest periods throughout the day. Rest with leg elevation is very important. Use the ice wrap frequently for the first 3-4 weeks. D. There are no restrictions on activities. You may ride in a car, shop, participate in tenderizer tender and all social activities. E. Wear the long elastic stockings (SUSANNE hose) 20 hours a day for 2 weeks after surgery. They can be removed several times a day for laundering and for a bath. F. You may shower, no tub baths until cleared by your doctor. SPECIAL CARE INSTRUCTIONS: VERY IMPORTANT TO READ AND REVIEW A. There are a few signs you need to watch for after you are home. Call [facility] if you notice any of the followin. Increased severe knee pain. Some pain is expected especially when you exercise. 2. Increased swelling in your leg or knee; pain or swelling of the calf muscle in either lower leg. 3. Any fluid drainage from the incision. 4. Shortness of breath or chest pain. B. Please call [facility] at if you have any concerns or questions about your operation or recovery. The doctor or his nurse will return your call promptly. C. You must take antibiotics before dental work, bladder, bowel or other surgery. Your doctor will provide you with a permanent care to carry describing this precaution. IMPORTANT: * REMEMBER TO TAKE ASPIRIN, 325 MG, TWICE DAILY FOR 4 WEEKS UNLESS OTHERWISE DIRECTED. THIS IS YOUR BLOOD THINNER. * HIGH RISK PATIENTS MAY BE PRESCRIBED A STRONGER BLOOD THINNER. THIS WILL BE PROVIDED AT DISCHARGE. * CALL IF INCREASED PAIN, REDNESS, DRAINAGE OR FEVER GREATER THAT 101. * WEAR SUSANNE HOSE 20 HOURS PER DAY FOR 2 WEEKS. * YOU MAY HAVE A LARGE BAND-AID LIKE DRESSING (SILVERON). THIS WILL REMAIN ON YOUR INCISION FOR 7 DAYS, THEN CAN BE REMOVED. IF INCISION IS LEAKING THROUGH DRESSING, CALL THE OFFICE . FOLLOW UP VISIT: If appointment is not already scheduled: Please call [facility] to make a follow-up appointment for 2 weeks after your surgery at . Prescriptions: New acetaminophen [Pain Reliever] 500 mg Tablet 1,000 mg PO Q8 PRN (Reason: pain) Qty: 90 RF: 0 aspirin 325 mg Tablet,Delayed Release (Dr/Ec) 325 mg PO BID 28 Days Qty: 56 RF: 0 celecoxib [Celebrex] 200 mg Capsule 200 mg PO BID PRN (Reason: pain) Qty: 28 RF: 0 sennosides [Senokot] 8.6 mg Tablet 17.2 mg PO HS PRN (Reason: constipation) Qty: 28 RF: 0 oxycodone 5 mg Tablet 5 mg PO Q6H MDD 6 tabs PRN (Reason: pain) Qty: 30 RF: 0 Continued atorvastatin 20 mg Tablet 20 mg PO DAILY RF: 0 perindopril erbumine 8 mg Tablet 8 mg PO DAILY RF: 0 hydrochlorothiazide 12.5 mg Tablet 12.5 mg PO DAILY RF: 0 multivitamin [Multiple Vitamins] Tablet 1 tab PO QAM RF: 0 calcium carbonate [Calcium 600] 600 mg calcium (1,500 mg) Tablet 600 mg PO QAM RF: 0 glucosamine-chondroitin 900 mg Tablet 1 dose PO DAILY RF: 0 Discontinued acetaminophen [Tylenol Extra Strength] 500 mg Tablet 2 tab PO TID PRN (Reason: Pain) RF: 0 Stand-Alone Forms: [facility], Opioid Pain Management Discharge Orders: Discharge Order (Routine); Ordered 07/14/18 Ordered By: Homer Murguia Admission Data Admit Date/Time: 07/13/18 09:48 Attending Provider: Homer Murguia Admit Provider: Homer Murguia Primary Care Provider: Oneal Marks Service: Surgical Services Other Interventions: Discharge Summary Assessment (RN) Last Done: 07/14/18 10:20 DC Date/Time DO NOT enter until pt leaves facility: 07/14/18 13:29
== END 2018-07-14 13:29 | disposition home health service (06) | DRG 470 ==
LOC: ASU 05:00 → 3E 09:48